=== PATIENT | female | born 1960 | race Caucasian/White ===

== ENCOUNTER 2020-03-14 17:51 | Emergency (ER) | payer OTHER ==
[~2020-03-14] VITALS: Ht 157.5 cm; Wt 58.1 kg
[2020-03-14 19:25] LABS: BASOPHILS % 0.2 % (0.0-1.0); EOSINOPHILS % 0.1 % (0.0-6.0); HEMATOCRIT 39.1 % (34.2-44.1); HEMOGLOBIN 12.8 g/dL (12.0-16.0); LYMPHOCYTES # (AUTO) 2.5 (1.0-3.2); MEAN CORPUSCULAR HEMOGLOBIN 32.2 pg (28-32); MEAN CORPUSCULAR HGB CONC 32.7 g/dL (31-35); MEAN CORPUSCULAR VOLUME 98.5 fL (81-99); MONOCYTES # (AUTO) 1.9 (0.2-0.8); MONOCYTES % 10.7 % (4.4-11.3); NEUTROPHILS # (AUTO) 13.1 (2.1-6.9); NEUTROPHILS % 74.4 % (38.7-80.0); PLATELET COUNT 291 x10e3/uL (140-360); RED BLOOD COUNT 3.97 x10e6/uL (3.6-5.1); RED CELL DISTRIBUTION WIDTH 15.4 % (11.7-14.4)
[2020-03-14 19:39] LABS: ALANINE AMINOTRANSFERASE 31 IU/L (0-55); ALBUMIN 3.9 g/dL (3.5-5.0); ALBUMIN/GLOBULIN RATIO 1.2 (0.8-2.0); ALKALINE PHOSPHATASE 69 IU/L (40-150); ANION GAP 18.7 mmol/L (8-16); BLOOD UREA NITROGEN 13 mg/dL (7-26); BUN/CREATININE RATIO 17 (6-25); CALCIUM 9.1 mg/dL (8.4-10.2); CARBON DIOXIDE 21 mmol/L (22-29); CHLORIDE 103 mmol/L (98-107); CREATININE, SERUM 0.78 mg/dL (0.57-1.11); EST GLOMERULAR FILTRATION RATE > 60 ML/MIN (60-); GLUCOSE 114 mg/dL (74-118); POTASSIUM 3.7 mmol/L (3.5-5.1); SODIUM 139 mmol/L (136-145)
[2020-03-14 19:49] LABS: AMYLASE 85 U/L (25-125); LIPASE 49 U/L (8-78)
[2020-03-14] MEDS ORDERED: MORPHINE SULFATE 2 MG/ML SYR 1ML IV STA (19:58)
[2020-03-14] MEDS ORDERED: SODIUM CHLORIDE 0.9% 1000ML 1,000 ML IV SCH ×2 (20:00→22:00)
[2020-03-14] MEDS ORDERED: PIPER-TAZ 3.375 GM 50 ML IV ONE (20:00)
--- NOTE | 2020-03-14 20:11 | Emergency Department Note ---
History of Present Illnes History of Present Illness Chief Complaint: Abdominal Complaints History of Present Illness This is a 59 year old female 4 DAYS AGO WENT TO URGENT CARE FOR DEHYDRATION. THEY CHECKED BLOOD WORK AND GAVE HER 1LITER IVF. SHE WAS CALLED TO DAY AND TOLD TO GO TO ER FOR ELEVATED WBC LAST NIGHT SHE ATE SHRIMP/CHEESECAKE. WITHIN 4 HRS SHE BEGAN TO "SHIT BLOOD" AND HAVE SHARP,DULL,ACHE LOWER QUADRANT PAIN. POSITIVE NAUSEA, NO VOMITING . Historian: Patient Additional Treatment SHOT DROPPER: NONE Finishing Inspector Required: No Onset (how long ago): day(s) (1) Location: lower abd Quality: pain, bloody diarrhea Radiation: Reports non-radiation Severity: moderate Onset quality: sudden Duration (how long): day(s) (1) Timing of current episode: constant Progression: worsening Chronicity: new Context: Denies recent illness, Denies trauma/injury Relieving factors: none Associated symptoms: Reports nausea/vomiting (nausea but no vomiting) Treatments prior to arrival: none Past Medical/Family History Physician Review I have reviewed the patient's past medical and family history. Any updates have been documented here. Past Medical History Recent Fever: No Clinical Suspicion of Infectio: No New/Unexplained Change in Ment: No Past Medical History: Kidney Stones Other Medical History: ADHD NEPHROLITHIASIS Past Surgical History: Other Surgery: SPLEENECTOMY X 8 SURGERY TO LEFT ARM FACIAL RECONSTRUCTION RIGHT OVARIAN CYST' Social History Smoking Cessation: Current every day smoker Alcohol Use: None Any Illegal Drug Use: No Family History Family history of heart diseas: No Review of Systems Review of Systems Constitutional: Reports no symptoms EENTM: Reports no symptoms Cardiovascular: Reports no symptoms Respiratory: Reports no symptoms Gastrointestinal: Reports as per HPI Genitourinary: Reports no symptoms Musculoskeletal: Reports no symptoms Integumentary: Reports no symptoms Neurological: Reports no symptoms Psychological: Reports no symptoms Endocrine: Reports no symptoms Hematological/Lymphatic: Reports no symptoms Physical Exam Related Data Allergies: Coded Allergies: morphine (Verified Adverse Reaction, Intermediate, 03/14/20) Triage Vital Signs Vital Signs Date Time Temp Pulse Resp B/P (MAP) Pulse Ox O2 Delivery O2 Flow Rate FiO2 03/14/20 18:31 99.0 82 18 134/74 100 Vital signs reviewed: Yes Physical Exam CONSTITUTIONAL Constitutional: Present well-developed, Present well-nourished; Absent distressed HENT HENT: Present normocephalic, Present atraumatic, Present oropharynx clear/moist, Present nose normal HENT L/R: Present left ext ear normal, Present right ext ear normal EYES Eyes: Reports PERRL, Reports conjunctivae normal (red) NECK Neck: Present ROM normal PULMONARY Pulmonary: Present effort normal, Present breath sounds normal CARDIOVASCULAR Cardiovascular: Present regular rhythm, Present heart sounds normal, Present capillary refill normal, Present normal rate GASTROINTESTINAL Abdominal: Present soft, Present bowel sounds normal, Present tender (suprapubic to left llq); Absent guarding, Absent mass, Absent rebound, Absent left CVA tenderness, Absent right CVA tenderness GENITOURINARY Genitourinary: Present exam deferred SKIN Skin: Present warm, Present dry MUSCULOSKELETAL Musculoskeletal: Present ROM normal NEUROLOGICAL Neurological: Present alert, Present oriented x 3, Present no gross motor or sensory deficits PSYCHOLOGICAL Psychological: Present mood/affect normal, Present judgement normal Results Laboratory Result Diagram: 03/14/20 1859 03/14/20 1859 Laboratory Laboratory Tests Test 03/14/20 20:15 03/14/20 18:59 Lactic Acid Level 1.4 mmol/L (0.5-2.0) White Blood Count 17.58 x10e3/uL (4.8-10.8) Red Blood Count 3.97 x10e6/uL (3.6-5.1) Hemoglobin 12.8 g/dL (12.0-16.0) Hematocrit 39.1 % (34.2-44.1) Mean Corpuscular Volume 98.5 fL (81-99) Mean Corpuscular Hemoglobin 32.2 pg (28-32) Mean Corpuscular Hemoglobin Concent 32.7 g/dL (31-35) Red Cell Distribution Width 15.4 % (11.7-14.4) Platelet Count 291 x10e3/uL (140-360) Neutrophils (%) (Auto) 74.4 % (38.7-80.0) Lymphocytes (%) (Auto) 14.0 % (18.0-39.1) Monocytes (%) (Auto) 10.7 % (4.4-11.3) Eosinophils (%) (Auto) 0.1 % (0.0-6.0) Basophils (%) (Auto) 0.2 % (0.0-1.0) Neutrophils # (Auto) 13.1 (2.1-6.9) Lymphocytes # (Auto) 2.5 (1.0-3.2) Monocytes # (Auto) 1.9 (0.2-0.8) Eosinophils # (Auto) 0.0 (0.0-0.4) Basophils # (Auto) 0.0 (0.0-0.1) Absolute Immature Granulocyte (auto 0.10 x10e3/uL (0-0.1) Prothrombin Time 12.4 seconds (11.9-14.5) Prothromb Time International Ratio 0.88 Activated Partial Thromboplast Time 30.1 seconds (23.8-35.5) Sodium Level 139 mmol/L (136-145) Potassium Level 3.7 mmol/L (3.5-5.1) Chloride Level 103 mmol/L (98-107) Carbon Dioxide Level 21 mmol/L (22-29) Anion Gap 18.7 mmol/L (8-16) Blood Urea Nitrogen 13 mg/dL (7-26) Creatinine 0.78 mg/dL (0.57-1.11) Estimat Glomerular Filtration Rate > 60 ML/MIN (60-) BUN/Creatinine Ratio 17 (6-25) Glucose Level 114 mg/dL (74-118) Calcium Level 9.1 mg/dL (8.4-10.2) Total Bilirubin 0.4 mg/dL (0.2-1.2) Aspartate Amino Transf (AST/SGOT) 60 IU/L (5-34) Alanine Aminotransferase (ALT/SGPT) 31 IU/L (0-55) Alkaline Phosphatase 69 IU/L (40-150) Total Protein 7.1 g/dL (6.5-8.1) Albumin 3.9 g/dL (3.5-5.0) Globulin 3.2 g/dL (2.3-3.5) Albumin/Globulin Ratio 1.2 (0.8-2.0) Amylase Level 85 U/L (25-125) Lipase 49 U/L (8-78) Laboratory Tests Test 03/14/20 18:59 White Blood Count 17.58 x10e3/uL (4.8-10.8) Red Blood Count 3.97 x10e6/uL (3.6-5.1) Hemoglobin 12.8 g/dL (12.0-16.0) Hematocrit 39.1 % (34.2-44.1) Mean Corpuscular Volume 98.5 fL (81-99) Mean Corpuscular Hemoglobin 32.2 pg (28-32) Mean Corpuscular Hemoglobin Concent 32.7 g/dL (31-35) Red Cell Distribution Width 15.4 % (11.7-14.4) Platelet Count 291 x10e3/uL (140-360) Neutrophils (%) (Auto) 74.4 % (38.7-80.0) Lymphocytes (%) (Auto) 14.0 % (18.0-39.1) Monocytes (%) (Auto) 10.7 % (4.4-11.3) Eosinophils (%) (Auto) 0.1 % (0.0-6.0) Basophils (%) (Auto) 0.2 % (0.0-1.0) Neutrophils # (Auto) 13.1 (2.1-6.9) Lymphocytes # (Auto) 2.5 (1.0-3.2) Monocytes # (Auto) 1.9 (0.2-0.8) Eosinophils # (Auto) 0.0 (0.0-0.4) Basophils # (Auto) 0.0 (0.0-0.1) Absolute Immature Granulocyte (auto 0.10 x10e3/uL (0-0.1) Sodium Level 139 mmol/L (136-145) Potassium Level 3.7 mmol/L (3.5-5.1) Chloride Level 103 mmol/L (98-107) Carbon Dioxide Level 21 mmol/L (22-29) Anion Gap 18.7 mmol/L (8-16) Blood Urea Nitrogen 13 mg/dL (7-26) Creatinine 0.78 mg/dL (0.57-1.11) Estimat Glomerular Filtration Rate > 60 ML/MIN (60-) BUN/Creatinine Ratio 17 (6-25) Glucose Level 114 mg/dL (74-118) Calcium Level 9.1 mg/dL (8.4-10.2) Total Bilirubin 0.4 mg/dL (0.2-1.2) Aspartate Amino Transf (AST/SGOT) 60 IU/L (5-34) Alanine Aminotransferase (ALT/SGPT) 31 IU/L (0-55) Alkaline Phosphatase 69 IU/L (40-150) Total Protein 7.1 g/dL (6.5-8.1) Albumin 3.9 g/dL (3.5-5.0) Globulin 3.2 g/dL (2.3-3.5) Albumin/Globulin Ratio 1.2 (0.8-2.0) Amylase Level 85 U/L (25-125) Lipase 49 U/L (8-78) Lab results reviewed: Yes Imaging Imaging results reviewed: Yes Impressions XAM: CT Abdomen and Pelvis WITH contrast INDICATION: ABD PAIN WITH RECTAL BLEEDIGN COMPARISON: None. TECHNIQUE: Abdomen and pelvis were scanned utilizing a multidetector helical scanner from the lung base to the pubic symphysis after administration of IV contrast. Coronal and sagittal reformations were obtained. Dose modulation, iterative reconstruction, and/or weight based adjustment of the mA/kV was utilized to reduce the radiation dose to as low as reasonably achievable. Routine protocol was performed. Scan was performed when during portal venous phase. IV CONTRAST: 150 mL of Omnipaque 300 ORAL CONTRAST: Water COMPLICATIONS: None RADIATION DOSE: Total DLP: 215 mGy-cm Estimated effective dose: (DLP x 0.015 x size factor) mSv CTDIvol has been reviewed. It is below the limits set by the Radiation Protocol Committee (RPC). FINDINGS: LINES and TUBES: None. LOWER THORAX: Unremarkable HEPATOBILIARY: No focal hepatic lesions. No biliary ductal dilation. GALLBLADDER: No radio-opaque stones or sludge. No gallbladder wall thickening. SPLEEN: Normal spleen is not seen however there are a small likely splenules noted in the region of the spleen. PANCREAS: No focal masses or ductal dilatation. ADRENALS: No adrenal nodules KIDNEYS/URETERS: Multiple cortical defects are seen in the right kidney, especially in superior pole and inferior pole. No hydronephrosis. No cystic or solid mass lesions. No stones. GI TRACT: There is marked wall thickening of the descending colon and sigmoid colon likely infectious or inflammatory. There is no obstruction. PELVIC ORGANS/BLADDER: The bladder is underdistended limiting evaluation. LYMPH NODES: No lymphadenopathy. VESSELS: No aortic aneurysm or dissection. PERITONEUM / RETROPERITONEUM: No free air or fluid. BONES: There are degenerative changes in the spine. SOFT TISSUES: Unremarkable. IMPRESSION: Marked wall thickening of the descending colon and sigmoid colon likely infectious or inflammatory. Signed by: Junior Thorpe MD on 03/14/2020 9:04 PM Dictated By: JUNIOR THORPE MD 03 Transcribed By: BENITA on 03/14/202103 COPY TO: URSZULA BONILLA MD~ Assessment & Plan Medical Decision Making MDM pt with lower abd pain and bloody diarrhea cbc, cmp, type and screen, amylase, lipase, pt/ptt ordered to eval for colitis, diverticulitis, severe anemia, leukocytosis, uti, electrolyte abnormality, morphine 4 mg iv ordered, zofran 4 mg iv ordered 2000 pt with wbc of 17K,lactic acid ordered, blood cultures ordered zosyn 3.375 grams iv ordered, 1 liter ns iv bolus ordered LACTIC ACID 1.4, SOURCE COLITIS I SPOKE WITH DR TOMPKINS AND DR Richard JEFFERSON Assessment & Plan Final Impression: (1) Colitis (2) Rectal bleeding (3) Abdominal pain (4) Leukocytosis Depart Disposition: ADMITTED Last Vital Signs Date Time Temp Pulse Resp B/P (MAP) Pulse Ox O2 Delivery O2 Flow Rate FiO2 03/14/20 18:31 99.0 82 18 134/74 100 Medications in the ED Morphine Sulfate 4 mg NOW STAT IV ; Start 03/14/20 at 19:58; Stop 03/14/20 at 19:59; Status UNV Ondansetron HCl 4 mg NOW STAT IV ; Start 03/14/20 at 19:58; Stop 03/14/20 at 19:59; Status UNV Sodium Chloride 1,000 ml @ 100 mls/hr Q10H IV ; Start 03/14/20 at 20:00; Stop 04/13/20 at 19:59 URSZULA BONILLA MD Mar 14, 2020 20:10
[2020-03-14] MEDS ORDERED: IOPAMIDOL 370 MG/ML 200 ML INFUS..BTL INJ ONE (20:34)
[2020-03-14] MEDS ORDERED: SODIUM CHLORIDE 0.9% 50ML 50 ML ONE (20:34)
--- NOTE | 2020-03-14 21:07 | Diagnostic Imaging Report ---
EXAM: CT Abdomen and Pelvis WITH contrast INDICATION: ABD PAIN WITH RECTAL BLEEDIGN COMPARISON: None. TECHNIQUE: Abdomen and pelvis were scanned utilizing a multidetector helical scanner from the lung base to the pubic symphysis after administration of IV contrast. Coronal and sagittal reformations were obtained. Dose modulation, iterative reconstruction, and/or weight based adjustment of the mA/kV was utilized to reduce the radiation dose to as low as reasonably achievable. Routine protocol was performed. Scan was performed when during portal venous phase. IV CONTRAST: 150 mL of Omnipaque 300 ORAL CONTRAST: Water COMPLICATIONS: None RADIATION DOSE: Total DLP: 215 mGy-cm Estimated effective dose: (DLP x 0.015 x size factor) mSv CTDIvol has been reviewed. It is below the limits set by the Radiation Protocol Committee (RPC). FINDINGS: LINES and TUBES: None. LOWER THORAX: Unremarkable HEPATOBILIARY: No focal hepatic lesions. No biliary ductal dilation. GALLBLADDER: No radio-opaque stones or sludge. No gallbladder wall thickening. SPLEEN: Normal spleen is not seen however there are a small likely splenules noted in the region of the spleen. PANCREAS: No focal masses or ductal dilatation. ADRENALS: No adrenal nodules KIDNEYS/URETERS: Multiple cortical defects are seen in the right kidney, especially in superior pole and inferior pole. No hydronephrosis. No cystic or solid mass lesions. No stones. GI TRACT: There is marked wall thickening of the descending colon and sigmoid colon likely infectious or inflammatory. There is no obstruction. PELVIC ORGANS/BLADDER: The bladder is underdistended limiting evaluation. LYMPH NODES: No lymphadenopathy. VESSELS: No aortic aneurysm or dissection. PERITONEUM / RETROPERITONEUM: No free air or fluid. BONES: There are degenerative changes in the spine. SOFT TISSUES: Unremarkable. IMPRESSION: Marked wall thickening of the descending colon and sigmoid colon likely infectious or inflammatory. Signed by: Junior Quintana MD on 03/14/2020 9:04 PM
[2020-03-14 21:16] LABS: INR 0.88; PARTIAL THROMBOPLASTIN TIME 30.1 seconds (23.8-35.5); PROTHROMBIN TIME 12.4 seconds (11.9-14.5)
[2020-03-14] MEDS ORDERED: MORPHINE SULFATE 2 MG/ML SYR 1ML ONE (21:32)
[2020-03-14] MEDS ORDERED: HYDROMORPHONE 1MG/1ML INJ IV STA (21:35)
[2020-03-14] MEDS ORDERED: ONDANSETRON HCL INJ 2MG/ML 2ML 2 MG/ML VIAL IV STA (21:54)
[2020-03-14] MEDS ORDERED: HYDROMORPHONE 1MG/1ML INJ IV PRN (22:00)
[2020-03-14] MEDS ORDERED: PIPER-TAZ 3.375 GM 50 ML IV SCH (22:00)
[2020-03-14] MEDS ORDERED: ONDANSETRON HCL INJ 2MG/ML 2ML 2 MG/ML VIAL IV PRN (22:00)
[2020-03-15] MEDS ORDERED: PANTOPRAZOLE 40 MG 10ML VIAL IV SCH (09:00)
== END 2020-03-14 22:30 | disposition home or self-care (01) ==
LOC: ER 18:44
DX: K52.9 Noninfective gastroenteritis and colitis, unspecified (principal); K62.5 Hemorrhage of anus and rectum; R10.30 Lower abdominal pain, unspecified; D72.829 Elevated white blood cell count, unspecified; Z87.442 Personal history of urinary calculi
CPT/HCPCS: 36415; 74177; 80053; 82150; 82270; 83605; 83690; 85025; 85610; 85730; 86850; 86900; 87040; 99284; J2405; J2543; J7030; Q9967; J2270